=== PATIENT | male | born 1940 | race Caucasian/White ===

== ENCOUNTER 2018-07-29 11:50 | Inpatient (IN) ==
--- NOTE | 2018-07-29 11:07 | Discharge Summary ---
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 transplanted heart: [place] heart Associated angina: angina presence unspecified Qualified Code(s): I25.10 - Atherosclerotic heart disease of [place] coronary artery without angina pectoris (4) Diabetes type 2, controlled Priority: Secondary Status: Chronic Qualifiers: Diabetes mellitus usp insulin use: unspecified usp insulin use status Diabetes mellitus complication status: without complication Qualified Code(s): E11.9 - Type 2 diabetes mellitus without complications (5) GERD (gastroesophageal reflux disease) Priority: Secondary Status: Chronic Qualifiers: Esophagitis presence: esophagitis presence not specified Qualified Code(s): K21.9 - Gastro-esophageal reflux disease without esophagitis (6) HLD (hyperlipidemia) Priority: Secondary Status: Chronic Qualifiers: Hyperlipidemia type: unspecified Qualified Code(s): E78.5 - Hyperlipidemia, unspecified (7) Hypertension Priority: Secondary Status: Chronic Qualifiers: Hypertension type: unspecified Qualified Code(s): I10 - Essential (primary) hypertension (8) Status post reverse total replacement of left shoulder Priority: Secondary Status: Chronic - Hospital Course Hospital course: Mr. Bhatia is a 77 year old male Status post revision left total shoulder patient discharged same day - Time Spent with Patient Total time spent providing and/or coordinating discharge services: - Discharge Medications Home Medications: Aspirin [Adult Low Dose Aspirin EC] 81 mg PO DAILY 07/22/15 [History] Finasteride [Proscar] 5 mg PO DAILY 07/22/15 [History] Furosemide [Lasix] 20 mg PO DAILY 07/22/15 [History] Isosorbide MONOnitrate [Isosorbide Mononitrate] 30 mg PO DAILY 07/22/15 [History] Pantoprazole Sodium [Protonix] 40 mg PO DAILY 07/22/15 [History] Potassium Chloride [Klor-Con Sprinkle] 20 meq PO DAILY 07/22/15 [History] Pravastatin Sodium [Pravachol] 20 mg PO HS 07/22/15 [History] Rivaroxaban [Xarelto] 20 mg PO DAILY 07/22/15 [History] Tamsulosin [Flomax] 0.4 mg PO HS 07/22/15 [History] Amiodarone [Cordarone] 200 mg PO DAILY 05/05/17 [History] Losartan Potassium [Cozaar] 50 mg PO DAILY 05/05/17 [History] Magnesium Oxide [Magnesium] 400 mg PO DAILY 05/05/17 [History] Multivitamin [One Daily Multivitamin] 1 tab PO DAILY 05/05/17 [History] B2/Vits A,C,E/Lut/Zeaxanth/Min [Icaps Tablet] 1 each PO DAILY 07/29/18 [History] Docusate Sodium [Stool Softener] 50 mg PO BID 07/29/18 [History] Ergocalciferol (VITAMIN D2) [Vitamin D] 400 unit PO DAILY 07/29/18 [History] Insulin ASPART [Novolog] 100 unit SQ BID 07/29/18 [History] Insulin DETEMIR [Levemir] 10 unit SQ HS 07/29/18 [History] Metoprolol Succinate [[place]sp[place] Sprinkle] 25 mg PO DAILY 07/29/18 [History] Tramadol HCl [Ultram] 100 mg PO QID PRN 5 Days #20 tab 07/29/18 [Rx] Allergies/Adverse Reactions: Allergy/AdvReac Type Severity Reaction Status Date / Time adhesive tape AdvReac See Verified 07/29/18 12:21 Comments hydrocodone [From [place]] AdvReac Itching Verified 07/29/18 12:24 Oxycodone [From OxyContin] AdvReac Itching Verified 07/29/18 12:24 pregabalin [From Lyrica] AdvReac Blurry Verified 07/29/18 12:24 Vision Primary care physician: PCP NONE - Patient Status Disposition: Home, Self-Care Condition: Good Overall status at discharge: patient is progressing back to baseline - Discharge Instructions Follow Up With: Liudmila Light, PAC [Physician Alliances Consultant] - 08/04/18 2:15 pm NONE,PCP [Primary Care Provider] - Additional Instructions: Discharge Instructions: Total Shoulder Please call [facility] ([phone]), your Primary Care Physician, or report to the Emergency Room if you have any of the following symptoms: Nausea, vomiting, fever greater that 101.5, swelling, chest pain, shortness of breath, increased pain/redness/drainage/odor for your incision site, numbness/tingling, or any other concerning symptoms. ACTIVITY: Always keep your arm in the sling. Do not raise your arm away from your body. Do not use your arm to help with getting in or out of bed. No weight bearing permitted. Only perform those exercises given to you by your therapist. Incentive Spirometer 10 times an hour. MEDICATIONS: Upon discharge resume your home medications. Take all the medications as prescribed. Take a stool softener if taking narcotic pain medica tions. Stool softeners are only effective if you drink enough fluids. Drink 6-8 glass of water or fluids a day, unless this is not allowed for another health problem. Despite using stool softeners, if you haven't had a bowel movement in 3 days, please switch to a gentle laxative. Gentle laxatives are sold over the counter. You should have a bowel movement within 24 hours, if not call the office. You will be discharged from the hospital with a prescription for pain medication. You are encouraged to decrease the use of narcotic pain medication as tolerated. Should you require a refill, please call the office. [facility] prescribes narcotic pain medication for only 4-6 weeks after surgery. If you require pain medication beyond this time period, you may be referred to your Primary Care Physician or to the Pain Clinic for further evaluation. Plan ahead for refills on pain medication as many narcotics either need to be picked up at the office or mailed. It is best to call 48-72 hours in advance of needing a prescription refill so you don't run out of medication. To help control the post-operative pain, you may take NSAIDs (Aleve,Advil, Motrin, Ibuprofen, Naprosyn) or Tylenol as prescribed on the bottle in addition to the pain medication. WOUND CARE: Leave the dressing on for 7-10 days. You may change the dressing if it becomes saturated greater than 50%. Do not get the dressing wet at anytime. Wash your hands with antibacterial soap, rinse and dry prior to any wound care. If you have cullen the visiting nurse or rehab facility can remove the stapes 10-14 days after surgery and place steri-strips across the wound. Leave the steri-strips in place until they fall off on their own. You may let water from the shower run on top of the steri-strips. If you do not have a visiting nurse or rehab facility, you will need to return to the office at 10-14 days for the cullen to be removed. If you have itching or redness around the dressing call the office. FOLLOW-UP: Please follow up with your surgeon in the orthopedic clinic, as scheduled
[2018-07-29] MEDS ORDERED: Albuterol 2.5 MG/3 ML NEBULIZER IH ONE (12:13)
[2018-07-29] MEDS ORDERED: CeFAZolin Syr 2,000MG/20 ML 2,000 MG/20 ML SYRINGE IVPB ONE (12:13)
[2018-07-29] MEDS ORDERED: Ringers Solution, Lactated 1,000 ML IVC SCH ×3 (12:15→16:20)
--- NOTE | 2018-07-29 12:22 | History & Physical Report ---
Date of Encounter: 07/29/18 Time of Encounter: 12:22 24 Hour HP Update - Instructions Instructions: If the History and Physical is less than 30 days old and was completed prior to A.M. admission and or procedure and has NOT been updated on calendar day of procedure please complete this update prior to performing procedure. - Update Patient reports changes in Medical Condition: No Changes in examination, assessment, or condition: No Changes in Medication: No Preop tests/diagnostics Reviewed: Yes Surgery Remains Indicated: Yes Consent for Planned Operative Procedure(s) Verified: Yes - Pre-Operative Checklist Preoperative Checklist Indicated: No Prophylactic Antibiotic Ordered: Yes Is VTE Prophylaxis Indicated?: Yes
--- NOTE | 2018-07-29 12:41 | Anesthesia Evaluation PreOp ---
Date of Encounter: 07/29/18 Time of Encounter: 12:39 - Past History Planned Operation: L total shoulder revision Cardiac History: HTN, Hyperlipidemia, Cardiac Stent (5yrs ago) Pulmonary History: Denies Any Significant HX LIFE SKILLS SPECIALIST History: Other (cervical spine fusion, lumbar) Other Medical History: Renal (renal insufficiency), Diabetes Type II ("prediabetic") Anesthesia History: No Prior Anesthetic Complications, Past Anesthesia (R reverse TSR) Alcohol Use: none Drug use: none Medications and Allergies Aspirin [Adult Low Dose Aspirin EC] 81 mg PO DAILY 07/22/15 [History] Finasteride [Proscar] 5 mg PO DAILY 07/22/15 [History] Furosemide [Lasix] 20 mg PO DAILY 07/22/15 [History] Isosorbide MONOnitrate [Isosorbide Mononitrate] 30 mg PO DAILY 07/22/15 [History] Pantoprazole Sodium [Protonix] 40 mg PO DAILY 07/22/15 [History] Potassium Chloride [Klor-Con Sprinkle] 20 meq PO DAILY 07/22/15 [History] Pravastatin Sodium [Pravachol] 20 mg PO HS 07/22/15 [History] Rivaroxaban [Xarelto] 20 mg PO DAILY 07/22/15 [History] Tamsulosin [Flomax] 0.4 mg PO HS 07/22/15 [History] Amiodarone [Cordarone] 200 mg PO DAILY 05/05/17 [History] Losartan Potassium [Cozaar] 50 mg PO DAILY 05/05/17 [History] Magnesium Oxide [Magnesium] 400 mg PO DAILY 05/05/17 [History] Multivitamin [One Daily Multivitamin] 1 tab PO DAILY 05/05/17 [History] B2/Vits A,C,E/Lut/Zeaxanth/Min [Icaps Tablet] 1 each PO DAILY 07/29/18 [History] Docusate Sodium [Stool Softener] 50 mg PO BID 07/29/18 [History] Ergocalciferol (VITAMIN D2) [Vitamin D] 400 unit PO DAILY 07/29/18 [History] Insulin ASPART [Novolog] 100 unit SQ BID 07/29/18 [History] Insulin DETEMIR [Levemir] 10 unit SQ HS 07/29/18 [History] Metoprolol Succinate [Kapspargo Sprinkle] 25 mg PO DAILY 07/29/18 [History] Allergy/AdvReac Type Severity Reaction Status Date / Time adhesive tape AdvReac See Verified 07/29/18 12:21 Comments hydrocodone [From [place]] AdvReac Itching Verified 07/29/18 12:24 Oxycodone [From OxyContin] AdvReac Itching Verified 07/29/18 12:24 pregabalin [From Lyrica] AdvReac Blurry Verified 07/29/18 12:24 Vision - Meds/Allergy Pre-op Review Medications Reviewed: Yes Allergies Reviewed: Yes Beta Blockers on Current Med List: No Anesthesia Results - Labs Laboratory Tests 07/19/18 07/19/18 07/19/18 15:07 15:07 15:07 WBC 4.7 Hgb 12.8 L Hct 40.2 PT 17.6 H INR 1.6 APTT 39.7 H Sodium 138 Potassium 4.3 Chloride 105 Carbon Dioxide 26 BUN 27 H Creatinine 1.74 H Hemoglobin A1c 07/19/18 15:07 WBC Hgb Hct PT INR APTT Sodium Potassium Chloride Carbon Dioxide BUN Creatinine Hemoglobin A1c 6.3 H - Imaging EKG: report reviewed ( Interpretive Statements SINUS RHYTHM WITH FIRST DEGREE AV BLOCK BORDERLINE LEFT AXIS DEVIATION Electronically Signed On 07-21-2018 6:20:22 EST by Americo Gutierrez) Anesthesia Exam O2 Sat Height 1.91 m Height 1.91 m Weight 110.223 kg Weight 110.223 kg O2 Sat by Pulse Oximetry 97 Vital Signs Temp Pulse Resp BP Pulse Ox 98.2 F 69 18 122/74 97 07/29/18 12:18 07/29/18 12:18 07/29/18 12:18 07/29/18 12:18 07/29/18 12:18 Weight: 110kg NPO (# of Hours): >8 - HEENT Pupil (Motor): Pupils equal, EOMI Mallampati: III (neck ROM is limited) Teeth: Missing, Poor dentition Oral Opening: Greater than 3 - LIFE SKILLS SPECIALIST LOC: Oriented LIFE SKILLS SPECIALIST Motor: Normal RUE, Normal LUE, Normal RLE, Normal LLE, Normal Face [employer] SKILLS SPECIALIST Sensory: Normal: RUE, LUE, RLE, LLE, Face - Cardiac Rhythm: Regular - Pulmonary Breath Sounds: bilateral Clear Respiratory Effort: Symmetrical Anesthesia Assess/Plan ASA Score: 3 Level of consciousness: Cooperative, Oriented Anesthetic Plan: General, Regional Nerve Block (L supraclavicular) Monitoring Plan: Standard Monitors Recovery Plan: PACU
[2018-07-29] MEDS ORDERED: Ondansetron 4 MG/2 ML VIAL IVP ONE (12:44)
[2018-07-29] MEDS ORDERED: *HR* FentaNYL (PF) 100 MCG/2 ML VIAL IVP PRN (12:44)
[2018-07-29] MEDS ORDERED: *HR* Meperidine 25 MG/ML SYRINGE IVP PRN (12:44)
[2018-07-29] MEDS ORDERED: *HR* OxyCODONE Immed Rel 5 MG TABLET PO PRN (12:44)
[2018-07-29] MEDS ORDERED: Acetaminophen IV 1,000 MG/100 ML INFUS..BTL ONE (12:49)
[2018-07-29] MEDS ORDERED: *HR* Midazolam HCl 2 MG/2 ML VIAL ONE (13:06)
[2018-07-29] MEDS ORDERED: *HR* Propofol 200 MG/20 ML VIAL IVP ONE (13:06)
[2018-07-29] MEDS ORDERED: *HR* FentaNYL (PF) 100 MCG/2 ML VIAL ONE (13:06)
[2018-07-29] MEDS ORDERED: Lidocaine -MPF 2% 2 ML VIAL ONE (13:06)
[2018-07-29] MEDS ORDERED: *HR* Succinylcholine 200 MG/10 ML VIAL IVP ONE (13:07)
[2018-07-29] MEDS ORDERED: ROPIVACAINE HCL/PF 0.5% 30 ML VIAL ONE (13:23)
[2018-07-29] MEDS ORDERED: Bupivacaine/Clonidine Syringe 1 EACH SYRINGE ONE (13:23)
[2018-07-29] MEDS ORDERED: Ethanol\\Acetic Acid\\Na Ace\\Ben 1,000 ML IRRIG.SOLN IR ONE (13:42)
[2018-07-29] MEDS ORDERED: Lidocaine -MPF 4% 5 ML AMPUL ONE (13:42)
--- NOTE | 2018-07-29 13:49 | Anesthesia Procedures ---
Date of Encounter: 07/29/18 Time of Encounter: 13:24 Procedures: Anesthesia - Nerve Block Procedure Date: 07/29/18 Time: 13:24 Allergies/Adv Reactions: No complications Pre-op Diagnosis: Aseptic loose left total Surgical Procedure: Left total shoulder revision Checklist: Correct Patient Identifier, Correct procedure, History checked Correct side: Left Blood Thinner: Yes (Xarelto stopped 07/26/18) Monitor Applied: EKG, BP, Pulse Oximetry Supplemental Oxygen via Nasal Cannula (L/min): 2 Sedation: Versed (mg): 1 Sedation: Fentanyl (mcg): 50 Indication: Post Op Analgesia Pre-op Neuro Deficits: No Block Type: Supraclavicular, Other (SCP, ICB) Catheter placed: No Sterile Technique: Yes Ultrasound used: Yes Anatomy identified: Yes Visual spread of Local: Yes Neuro Stimulation: No Blood on Needle Aspiration: No Smooth Injection of Local: Yes Pain with Injection of Local: No Prep: Chlorhexadine Needle: 22 x 50 mm Stimuplex Local: 0.25% Bupivicaine w/Clonidine 20 mcg/cc (10ml), Ropivacaine (0.5% 30ml) Number of Attempts: 1 Complications: None/effective block Vitals: Vital Signs/O2 Sat/Glucose, Most Recent Temp Pulse Resp BP Pulse Ox 98.2 F 60 18 128/94 96 07/29/18 13:23 07/29/18 13:38 07/29/18 13:38 07/29/18 13:38 07/29/18 13:38 Blood Glucose* 158
[2018-07-29] MEDS ORDERED: EPHEDrine 50 MG/ML VIAL ONE (14:02)
[2018-07-29] MEDS ORDERED: *HR* PHENYLEPHRINE 1,000 MCG/10 ML SYRINGE IVP ONE (14:23)
[2018-07-29] MEDS ORDERED: Dexamethasone 4 MG/ML VIAL ONE (15:10)
[2018-07-29] MEDS ORDERED: Ondansetron 4 MG/2 ML VIAL ONE (15:10)
--- NOTE | 2018-07-29 15:29 | Orthopedic Operative Note ---
Date of procedure: 07/29/18 Pre-op diagnosis: Aseptic loosening left total shoulder Post-op diagnosis: same Procedure: Procedure: Left Revision Total Shoulder replacement reverse Estimated blood loss: 500 cc Hardware:Metal and plastic: Baseplate: 28mm, +4, 35mm; 42+4, Central met aphysis, +6 metal spacer, 3 poly Procedural Notes: Well fixed humeral stem, loose glenoid component with 2 broken screws of the 3 screws Operative procedure: The patient was brought to the operating room and placed on the operating room table. The patient was placed in the modified beachchair position. All pressure points were padded appropriately. And the head was stabilized in the neutral position. The operative extremity was prepped and draped in the sterile surgical fashion. The patient received IV antibiotics prior to skin incision. A standard deltopectoral approach was made to the operative shoulder. Incision was made to the skin and subcutaneous tissue,hemo stasis was obtained with Bovie cautery. Using careful blunt dissection the cephalic vein was identified and mobilized medially. The deltopectoral interval was developed and the clavipectoral fascia was incised. An extensive debridement was performed, and the shoulder was dislocated. The metaphyseal portion of the component was removed, this exposed the stem portion an osteotome was used to disrupt the proximal portion around the stem. The extraction device was used to try to remove the stem the stem was well fixed and did not require removal. Attention was then turned to the glenoid. Anterior and posterior Bankart retractors were used to expose the glenoid, the glenoid component was removed without incident. First the glenosphere was disengaged, and the screws removed from the baseplate, and finally the baseplate was removed without significant bone loss. The glenoid guide was seated the centering hole was made the glenoid was reamed with the appropriate reamer. The glenoid baseplate was seated and secured and locked in place with the locking screws. The baseplate was a 28 mm, +4, 35 mm screw. The baseplate was irrigated and dried glenosphere was seated and secured, 42+4, locked in place with the central locking screw. Attention was then turned to the humeral side. A new metaphyseal component was seated and secured in the 135 degree position. Trial reduction revealed excellent stability with a +6 metal +3 Yolis combination. The trial implants were removed the real implants were seated and secured in the shoulder was reduced. The patient had excellent motion and excellent stability no shuck. The deep tissue was irrigated with pulse irrigation of antibacterial solution followed by normal saline, deltopectoral interval was closed with #2 PDS suture . Superficially the subcutaneous tissue was closed with 0 PDS suture, the skin was closed with Dermabond. The patient placed sterile dressing, postoperative brace extubated and transferred to the recovery room in stable condition. Anesthesia: GETA Surgeon: Frantz Cabrales Was there an merchandising assistant present: No Estimated blood loss (cc): 50 Condition: stable Disposition: PACU
--- NOTE | 2018-07-29 15:56 | Anesthesia Evaluation Post Op ---
Date of Encounter: 07/29/18 Time of Encounter: 15:55 - Vital Signs Vital Signs: Vital Signs Temp Pulse Resp BP Pulse Ox 07/29/18 15:46 97.8 F 88 18 124/71 96 07/29/18 15:36 75 16 98 07/29/18 15:26 77 16 108/83 95 07/29/18 15:16 98.5 F 95 16 145/84 98 07/29/18 13:52 59 18 132/73 96 07/29/18 13:38 60 18 128/94 96 07/29/18 13:25 62 18 132/68 98 07/29/18 13:23 98.2 F 69 18 122/74 97 07/29/18 13:18 65 18 129/92 97 07/29/18 12:18 98.2 F 69 18 122/74 97 Intake and Output 07/28/18 07/29/18 07/29/18 23:59 07:59 15:59 Intake Total 20 / 20 Output Total 50 / 50 Balance -30 / -30 Intake: IV Fluids 20 / 20 Ancef Syringe 2,000 MG/20 ML 2, 20 / 20 000 mg In 20 ml @ 200 mls/hr IVPB PREOP ONE Rx#:[id number] Output: Estimated Blood Loss 50 / 50 Other: Weight 110.223 kg Blood Glucose* 117 Patient Weight 07/29/18 23:59 Weight 110.223 kg - Lungs Lungs: Clear Ascult./Percussion - Airway Airway: Non-obstructed - Cardiovascular Regular Rate - Mental Status Mental Status: Alert & Oriented, Answers Appropriately - Pain Pain Scale: 0 - Nausea Vomiting Nausea Vomiting: Present - Hydration Hydration: NPO, Tolerates oral liquids
[2018-07-29] MEDS ORDERED: D5% in Water 1,000 ML IVC PRN (16:20)
[2018-07-29] MEDS ORDERED: Naloxone 0.4 MG/ML INJ IVP PRN (16:20)
[2018-07-29] MEDS ORDERED: Sennosides 8.6 MG TABLET PO PRN (16:20)
[2018-07-29] MEDS ORDERED: Ondansetron 4 MG/2 ML VIAL IVP PRN (16:20)
[2018-07-29] MEDS ORDERED: Dextrose Gel 15 GM/37.5 ML TUBE PO PRN ×2 (16:20)
[2018-07-29] MEDS ORDERED: traMADol 50 MG TABLET PO PRN ×2 (16:20)
[2018-07-29] MEDS ORDERED: Acetaminophen 325 MG TABLET PO PRN (16:20)
[2018-07-29] MEDS ORDERED: Temazepam 15 MG CAPSULE PO PRN (16:20)
[2018-07-29] MEDS ORDERED: *HR* Dextrose 50 % in Water (Syg) 50 ML SYRINGE IVP PRN (16:20)
[2018-07-29] MEDS ORDERED: MOM Conc 10 ML UD.LIQ PO PRN (16:20)
[2018-07-29] MEDS ORDERED: Insulin LISPRO 300 UNITS/3 ML VIAL SQ SCH ×2 (16:30→21:00)
[2018-07-29 19:31] VITALS: BP 147/75
[2018-07-29] MEDS ORDERED: INSULIN ASPART 100 UNIT SQ SCH (21:00)
[2018-07-29] MEDS ORDERED: Insulin DETEMIR 100 UNIT/ML X5UNITS SQ SCH (21:00)
[2018-07-30] MEDS ORDERED: Isosorbide MONOnitrate (24 HR) 30 MG TAB.ER.24H PO SCH (09:00)
[2018-07-30] MEDS ORDERED: Magnesium Oxide 400 MG TABLET PO SCH (09:00)
[2018-07-30] MEDS ORDERED: Cholecalciferol (D-3) 1,000 UNIT TABLET PO SCH (09:00)
[2018-07-30] MEDS ORDERED: Metoprolol XL (24 HR) Succ 25 MG TAB.ER.24H PO SCH (09:00)
[2018-07-30] MEDS ORDERED: NON-FORMULARY MEDICATION 1 EACH EACH (Multivitamin [One Daily Multivitamin] 1 TAB) PO SCH (09:00)
[2018-07-30] MEDS ORDERED: Aspirin Enteric Coated 81 MG Tablet PO SCH (09:00)
[2018-07-30] MEDS ORDERED: Multivit/Ca/Min/Fe/FA 1 TAB TABLET PO SCH (09:00)
[2018-07-30] MEDS ORDERED: Finasteride 5 MG TABLET PO SCH (09:00)
[2018-07-30] MEDS ORDERED: *HR* Amiodarone 200 MG TABLET PO SCH (09:00)
[2018-07-30] MEDS ORDERED: Furosemide 20 MG TABLET PO SCH (09:00)
[2018-07-30] MEDS ORDERED: *HR* Rivaroxaban 10 MG TABLET PO SCH (17:00)
== END 2018-07-29 19:20 | disposition home or self-care (01) | DRG 483 ==
LOC: SAMDAY 11:50 → 3NENU 15:59
PROVIDERS: ADMIT Orthopaedic Surgery; ATTEND Orthopaedic Surgery